=== PATIENT | male | born 1955 | race Caucasian/White ===

== ENCOUNTER 2019-12-23 13:29 | Outpatient (CLI) | payer MEDICAID | END 2019-12-23 23:59 | disposition home or self-care (01) | LOC: CFH 13:29 | PROVIDERS: ATTEND Internal Medicine Cardiovascular Disease | DX: I35.8 Other nonrheumatic aortic valve disorders (principal); R06.02 Shortness of breath; I10 Essential (primary) hypertension | CPT/HCPCS: 93306 ==